=== PATIENT | female | born 1965 | race Two or more races ===

== ENCOUNTER → 2024-03-15 | Outpatient (CLI) | payer MEDICAID, SELFPAY ==
--- NOTE | 2024-03-15 07:30 | XR_ITS ---
Examination: Breast ultrasound complete, bilateral Date and time of exam: Right complete Technique: Real-time grayscale ultrasonographic imaging bilateral breasts, including all 4 quadrants as well as nipple retroareolar and axillary regions. Exam date and time: March 15, 2024 0755 hours INDICATIONS: Mammogram November 29, 2023 architectural distortion upper left breast in the axillary region posterior depth 4 mm circumscribed nodule nipple level right breast MLO view Sonographic images right breast 2:00 cyst 5 x 5 mm No solid nodules Sonographic images left breast No cystic or solid mass Left axillary 17 x 12 mm lymph node IMPRESSION: BI-RADS Category 2: Benign findings
--- NOTE | 2024-03-15 08:30 | XR_ITS ---
Examination: Diagnostic digital mammography, unilateral, left Computer aided detection 3-D breast Tomosynthesis, unilateral Date and time of exam: March 15, 2024 0816 hours INDICATIONS: Mammogram November 29, 2023 small focus architectural distortion upper left breast axillary region Technique: Nonmagnified MLO, CC views of the left breast have been obtained, reconstructed from 3-D Tomosynthesis images. R2 computer aided detection program utilized for evaluation of suspicious masses and/or abnormal calcifications. 3-D Tomosynthesis images obtained. Findings: Scattered areas of fibroglandular density. Definite architectural distortion is not depicted on the spot compression views Impression: BI-RADS category 3: Probably benign findings Recommend 1 additional 6 month left mammogram follow-up to confirm no architectural distortion in the axillary portion left breast on the MLO view
== END | disposition home or self-care (01) ==
LOC: CDIM 07:40
PROVIDERS: Referring Provider Physician Assistant Medical; Visit Provider Physician Assistant Medical
DX: R92.332 Mammographic heterogeneous density, left breast (principal); N60.02 Solitary cyst of left breast
CPT/HCPCS: 76641; 77061; 77065; G0279

== ENCOUNTER 2024-05-26 06:40 | Day surgery (SDC) | payer MEDICAID, SELFPAY ==
[2024-05-25 11:00] VITALS: BMI 29.2
[2024-05-26] VITALS (9 sets, daily range): BP systolic 110–131; BP diastolic 74–90; PULSE 69–96; RESP 15–21; TEMP 36.4; O2SAT 96–100; BMI 29.0
[2024-05-26] MEDS: DiphenhydrAMINE INJ 50 MG/ML VIAL 25 MG IV (07:28)
[2024-05-26] MEDS: MIDAZOLAM INJ 1 MG/ML VIAL 2 ML (ASD USE ONLY) 2 MG IV (07:32)
[2024-05-26] MEDS: fentaNYL CIT INJ 50 mCg/ML AMP 2ML (ASD USE ONLY) IV (07:34)
[2024-05-26] MEDS: SIMETHICONE 40 MG/0.6 ML ORAL SYRINGE PO (07:36)
== END 2024-05-26 08:45 | disposition home or self-care (01) ==
PROVIDERS: PCP Physician Assistant Medical; Referring Provider Surgery; Visit Provider Surgery
PROC: 0DBE8ZX Excision of Large Intestine, Via Natural or Artificial Opening Endoscopic, Diagnostic (ICD-10-PCS; CPT 45380; principal; 2024-05-26 07:30)
DX: Z12.11 Encounter for screening for malignant neoplasm of colon (principal); Z80.0 Family history of malignant neoplasm of digestive organs; D12.4 Benign neoplasm of descending colon; K64.1 Second degree hemorrhoids
CPT/HCPCS: 45385; 45380

== ENCOUNTER → 2024-09-05 | Outpatient (CLI) | payer MEDICAID, SELFPAY ==
--- NOTE | 2024-09-05 08:15 | XR_ITS ---
Examination: Diagnostic digital mammography, unilateral, left Computer aided detection 3-D breast Tomosynthesis, unilateral Date and time of exam: September 06, 2023 0800 hours INDICATIONS: Mammogram November 29, 2023 architectural distortion upper left breast in the axillary region Technique: Nonmagnified MLO, CC views of the left breast have been obtained, reconstructed from 3-D Tomosynthesis images. R2 computer aided detection program utilized for evaluation of suspicious masses and/or abnormal calcifications. 3-D Tomosynthesis images obtained. Findings: Scattered areas of fibroglandular density. No architectural distortion is depicted No suspicious masses Impression: BI-RADS category 2: Benign findings Return to yearly follow-up mammography
== END | disposition home or self-care (01) ==
LOC: CDIM 07:54
PROVIDERS: Referring Provider Physician Assistant Medical; Visit Provider Physician Assistant Medical
DX: R92.322 Mammographic fibroglandular density, left breast (principal)
CPT/HCPCS: 77061; 77065; G0279